=== PATIENT | female | born 1985 | race Two or more races ===

== ENCOUNTER → 2018-08-15 | Outpatient (CLI) | payer OTHER ==
[2018-08-15 12:27] LABS: Alcohol, Urine < 3.0 mg/dL (0-5); Amphetamine Screen, Urine NEGATIVE (NEGATIVE); Barbiturate Scree,Urine NEGATIVE (NEGATIVE); Benzodiazephine Screen, Urine NEGATIVE (NEGATIVE); Cannabinoid Screen, Urine NEGATIVE (NEGATIVE); Cocaine Screen, Urine NEGATIVE (NEGATIVE); Opiate Scree,Urine NEGATIVE (NEGATIVE); Phencyclidine Screen, Urine NEGATIVE (NEGATIVE)
[2018-08-15 12:30] LABS: Basophils # (auto) 0 uL; Basophils % (auto) 0.2 % (0.0-2.0); Eosinophils # (auto) 0.1 uL; Eosinophils % (auto) 1.2 % (0.0-7.0); Hematocrit 37.6 % (36.0-46.0); Hemoglobin 12.9 g/dL (12.2-16.2); Lymphocytes # (auto) 1.2 uL; Lymphocytes % (auto) 17.8 % (10.0-50.0); Mean Corpuscular Hemoglobin 31.3 pg (28.0-32.0); Mean Corpuscular Hgb Conc. 34.3 g/dL (32.0-36.0); Mean Corpuscular Volume 91.1 fL (80.0-100.0); Monocytes # (auto) 0.4 uL; Neutrophils % (auto) 74.8 % (37.0-80.0); Platelet Count (auto) 167 10^3/uL (140-450); Red Blood Cells 4.12 10^6/uL (4.0-5.20); Red Cell Distribution Width 13.7 % (11.8-14.3); White Blood Cell 6.6 10^3/uL (4.4-10.8)
[2018-08-16 08:10] LABS: RPR Non Reactive (Non Reactive)
== END | disposition home or self-care (01) ==
LOC: LAB 10:21
PROVIDERS: ATTEND Specialist
DX: Z34.81 Encounter for supervision of other normal pregnancy, first trimester (principal); Z36.0 Encounter for antenatal screening for chromosomal anomalies; Z20.2 Contact with and (suspected) exposure to infections with a predominantly sexual mode of transmission; Z3A.10 10 weeks gestation of pregnancy
CPT/HCPCS: 36415; 80307; 83036; 84702; 85025; 86592; 86703; 86762; 86850; 86900; 86901; 87086; 87340

== ENCOUNTER 2018-12-07 20:18 | Observation (INO) | payer OTHER ==
[~2018-12-07] VITALS: Ht 167.6 cm; Wt 86.6 kg
== END 2018-12-07 21:25 | disposition home or self-care (01) | DRG 833 ==
LOC: LDRP 20:18
PROVIDERS: ADMIT Obstetrics & Gynecology; ATTEND Obstetrics & Gynecology
DX: O26.892 Other specified pregnancy related conditions, second trimester (principal); R10.9 Unspecified abdominal pain; Z3A.27 27 weeks gestation of pregnancy
CPT/HCPCS: 59025; 81002; G0378

== ENCOUNTER → 2018-12-09 | Outpatient (CLI) | payer OTHER ==
[2018-12-09 09:36] LABS: Basophils # (auto) 0 uL; Basophils % (auto) 0.2 % (0.0-2.0); Eosinophils # (auto) 0.1 uL; Eosinophils % (auto) 1.2 % (0.0-7.0); Hematocrit 33.7 % (36.0-46.0); Lymphocytes # (auto) 1.4 uL; Lymphocytes % (auto) 15.9 % (10.0-50.0); Mean Corpuscular Hemoglobin 33.6 pg (28.0-32.0); Mean Corpuscular Hgb Conc. 35.5 g/dL (32.0-36.0); Mean Corpuscular Volume 94.7 fL (80.0-100.0); Monocytes # (auto) 0.7 uL; Monocytes % (auto) 7.6 % (0.0-12.0); Neutrophils # (auto) 6.8 uL; Neutrophils % (auto) 75.1 % (37.0-80.0); Nucleated Red Blood Cells % 0.1 %; Platelet Count (auto) 174 10^3/uL (140-450); Red Blood Cells 3.56 10^6/uL (4.0-5.20)
== END | disposition home or self-care (01) ==
LOC: LAB 09:19
PROVIDERS: ATTEND Specialist
DX: O99.810 Abnormal glucose complicating pregnancy (principal); Z3A.26 26 weeks gestation of pregnancy
CPT/HCPCS: 36415; 82951; 85025

== ENCOUNTER 2019-02-27 05:05 | Inpatient (IN) | payer OTHER ==
[~2019-02-27] VITALS: Ht 165.1 cm; Wt 92.5 kg
[2019-02-27] VITALS (14 sets, daily range): BP systolic 99–110; BP diastolic 58–79
[2019-02-27] MEDS ORDERED: LACTATED RINGER'S 1,000 ML IV SCH (05:12)
[2019-02-27 05:53] LABS: Basophils # (auto) 0 uL; Basophils % (auto) 0.3 % (0.0-2.0); Eosinophils # (auto) 0.1 uL; Eosinophils % (auto) 1.1 % (0.0-7.0); Hematocrit 35.2 % (36.0-46.0); Hemoglobin 12.4 g/dL (12.2-16.2); Lymphocytes # (auto) 1.6 uL; Mean Corpuscular Hgb Conc. 35.1 g/dL (32.0-36.0); Mean Corpuscular Volume 94.1 fL (80.0-100.0); Monocytes # (auto) 0.8 uL; Monocytes % (auto) 8.1 % (0.0-12.0); Neutrophils % (auto) 73.5 % (37.0-80.0); Platelet Count (auto) 177 10^3/uL (140-450); Red Blood Cells 3.74 10^6/uL (4.0-5.20); Red Cell Distribution Width 13.8 % (11.8-14.3); White Blood Cell 9.6 10^3/uL (4.4-10.8)
[2019-02-27 05:55] LABS: Urine Bacteria NONE SEEN /hpf (None Seen); Urine Blood Negative /uL (Negative); Urine Specific Gravity 1.008 (1.001-1.035); Urine WBC 27 /hpf (0 - 5)
[2019-02-27 06:06] LABS: INR 0.95 (0.9-1.15); Partial Thromboplastin Time 27.2 sec (23.64-32.05)
[2019-02-27 06:26] LABS: Albumin 2.5 g/dL (3.4-5.0); BUN/Creatinine Ratio 16.2; Potassium 3.5 mmol/L (3.5-5.1)
[2019-02-27 06:35] LABS: Bilirubin, Total 0.2 mg/dL (0.2-1.0); Total Protein 6.6 g/dL (6.4-8.2)
[2019-02-27] MEDS ORDERED: MORPHINE SULF(PF) 0.5MG/ML 10ML VIAL ONE (09:44)
[2019-02-27] MEDS ORDERED: fentaNYL CITRATE 100 MCG/2 ML VL ONE (09:44)
[2019-02-27] MEDS ORDERED: ONDANSETRON HCL 4 MG/2 ML VIAL IV PRN ×2 (11:15)
[2019-02-27] MEDS ORDERED: diphenhdrAMINE HCL 50 MG/1 ML VL IV PRN (11:15)
[2019-02-27] MEDS ORDERED: NALOXONE HCL 0.4 MG/ML VIAL IV PRN (11:15)
[2019-02-27] MEDS ORDERED: ceFAZolin 1GM/50ML 50 ML IV SCH ×3 (11:15→18:30)
[2019-02-27] MEDS ORDERED: HYDROmorphone HCL 2 MG/ML VL IV PRN (11:15)
--- NOTE | 2019-02-27 11:50 | NUR ---
PT REPORT RECEIVED FROM Marc DUMONT RN ON PATIENT, ASSUMING CARE WHEN PT RETURNS TO UNIT FROM PACU.
--- NOTE | 2019-02-27 11:53 | NUR ---
[facility] [employer]SACTION COORDINATOR CALLED AND GAVE REPORT ON PATIENT, STATED PT WILL BE BROUGHT OVER IN 5 MINUTES, AWAITING ARRIVAL.
--- NOTE | 2019-02-27 12:05 | NUR ---
Post Op for LDRP: Received patient from PACU [facility] RN via bed to room 8B. Patient A/A/Ox4, abdominal binder and bilateral SCD's are in place, IV fluids placed on pump and infusing LR per order, incisional site dressing sero-sang drainage circled and Btuts Catheter to gravity draining clear yellow urine. Incentive Spirometer at bedside and instruction on proper use with return demonstration done by patient. Patient fundus firm at umbilicus, scant lochia.
[2019-02-27] MEDS: LACTATED RINGER'S 1,000 ML IV SCH ×2 (13:10→23:00)
[2019-02-27] MEDS: KETOROLAC TROMETH 30 MG/ML 1ML VIAL IV SCH ×2 (13:11→18:01)
[2019-02-27] MEDS: ceFAZolin 1GM/50ML 50 ML IV SCH (18:01)
[2019-02-28] VITALS (7 sets, daily range): BP systolic 88–99; BP diastolic 52–60
--- NOTE | 2019-02-28 00:01 | NUR ---
Preparing pt for ambulation, fundus firm below the umb. lochia is light no clots noted. Sequential stockings removed, terence care given. Butts catheter remains in place 100 ml's of clear yellow urine emptied. Pt sitting on edge of bed no c/o dizziness at this time pt able to ambulate to chair with steady gait. Pt sitting quietly no distress noted, per pt request she remains in chair, instructed pt to call for assistance whe ready to ambulate back to bed. call tobar within reach
[2019-02-28] MEDS: KETOROLAC TROMETH 30 MG/ML 1ML VIAL IV SCH ×2 (00:14→06:03)
--- NOTE | 2019-02-28 01:30 | NUR ---
Pt assisted back to bed, IV fluids as ordered, call tobar within reach instructed to notify staff if she exp any problems or has any concerns.
[2019-02-28] MEDS: ceFAZolin 1GM/50ML 50 ML IV SCH ×2 (02:45→10:12)
[2019-02-28 04:06] LABS: RPR Non Reactive (Non Reactive)
--- NOTE | 2019-02-28 06:00 | NUR ---
Butts catheter removed and intact, 650 ml's of clear yellow urine emptied. Explained to pt the importance of urinating within a 6 hour time frame. Pt verbalizes understanding.
[2019-02-28 06:18] LABS: Basophils # (auto) 0 uL; Basophils % (auto) 0.4 % (0.0-2.0); Eosinophils # (auto) 0.1 uL; Hematocrit 28.5 % (36.0-46.0); Hemoglobin 10.1 g/dL (12.2-16.2); Mean Corpuscular Hemoglobin 33.3 pg (28.0-32.0); Mean Corpuscular Hgb Conc. 35.4 g/dL (32.0-36.0); Mean Corpuscular Volume 94.2 fL (80.0-100.0); Monocytes # (auto) 0.6 uL; Monocytes % (auto) 6.8 % (0.0-12.0); Neutrophils % (auto) 79.8 % (37.0-80.0); Nucleated Red Blood Cells % 0.1 %; Platelet Count (auto) 140 10^3/uL (140-450); Red Blood Cells 3.02 10^6/uL (4.0-5.20); White Blood Cell 8.7 10^3/uL (4.4-10.8)
[2019-02-28] MEDS ORDERED: HYDROcodone-ACET 5/325MG TAB PO PRN ×2 (12:15)
[2019-02-28] MEDS ORDERED: SIMETHICONE 80 MG CHEWABLE TABLET PO PRN (12:15)
[2019-02-28] MEDS: IBUPROFEN 800 MG TAB PO PRN ×2 (15:01→22:44)
[2019-02-28] MEDS ORDERED: PREN-96 PO (21:08)
[2019-02-28] MEDS ORDERED: INFLUENZA QUAD 2019-2020 0.5ml SYRG IM ONE (21:30)
[2019-02-28] MEDS: DOCUSATE SOD 100 MG CAP PO SCH (22:44)
--- NOTE | 2019-03-01 01:09 | NUR ---
IV removal Patient c/o pain at IV site and bleeding noted at IV insertion site. IV DC'd with sterile technique, catheter fully intact. Pressure dressing applied to site. Patient tolerated procedure well.
[2019-03-01 03:00] VITALS: BP 98/58
[2019-03-01 07:00] VITALS: BP 101/61
[2019-03-01] MEDS: IBUPROFEN 800 MG TAB PO PRN ×3 (07:30→21:43)
[2019-03-01 11:00] VITALS: BP 100/63
[2019-03-01] MEDS: DOCUSATE SOD 100 MG CAP PO SCH ×2 (11:17→21:42)
[2019-03-01] MEDS: DOCUSATE CALCIUM 240 MG CAP PO SCH (11:17)
[2019-03-01] MEDS ORDERED: ACETAMINOPHEN 325 MG TAB PO PRN (11:45)
[2019-03-01] MEDS: ACETAMINOPHEN 325 MG TAB PO PRN (12:18)
[2019-03-01 15:00] VITALS: BP 89/59
[2019-03-01] MEDS ORDERED: BISACODYL 10 MG RECT SUPP PR PRN (18:15)
[2019-03-01 19:00] VITALS: BP 103/66
[2019-03-01 22:56] VITALS: BP 98/63
[2019-03-02] MEDS: ACETAMINOPHEN 325 MG TAB PO PRN (01:11)
[2019-03-02 03:00] VITALS: BP 98/62
[2019-03-02 07:10] VITALS: BP 104/69
[2019-03-02] MEDS ORDERED: INFLUENZA QUAD 2019-2020 0.5ml SYRG IM ONE (10:15)
[2019-03-02] MEDS: DOCUSATE SOD 100 MG CAP PO SCH (10:26)
[2019-03-02] MEDS: DOCUSATE CALCIUM 240 MG CAP PO SCH (10:26)
[2019-03-02] MEDS: IBUPROFEN 800 MG TAB PO PRN (10:26)
--- NOTE | 2019-03-02 10:30 | NUR ---
Discharge: Discharge instructions given as ordered. Pt encouraged to follow up with [facility] as instructed. All questions and concerns addressed. Patient verbalized understanding. Medication reconciliation completed and copy given to patient. All required/requested vaccines given and copies of vaccinations given to patient. Patient encouraged to prepare to depart unit.
--- NOTE | 2019-03-02 10:45 | NUR ---
Discharge: Patient taken to vehicle with all personal belongings, accompanied by staff and family member. No distress noted at time of departure, no adverse changes in status since initial assessment.
== END 2019-03-02 10:44 | disposition home or self-care (01) | DRG 788 ==
LOC: LDRP 05:05
PROVIDERS: ADMIT Specialist; ATTEND Specialist
PROC: 10D00Z1 Extraction of Products of Conception, Low, Open Approach (ICD-10-PCS; principal; 2019-02-27 09:50)
DX: O34.211 Maternal care for low transverse scar from previous cesarean delivery (principal); Z37.0 Single live birth; Z3A.39 39 weeks gestation of pregnancy; Z23 Encounter for immunization
CPT/HCPCS: 36415; 59025; 80053; 81001; 84112; 85025; 85610; 85730; 86592; 86850; 86900; 86901; 96365; 96366; 96375; G0378; J0690; J1885

== ENCOUNTER → 2020-09-06 | Outpatient (CLI) | payer OTHER ==
[~2020-09-06] MED LIST: PREN-96 PO
[2020-09-06 07:57] LABS: Basophils # (auto) 0 10 ^3/uL (0-0.2); Basophils % (auto) 0.6 % (0.0-2.0); Eosinophils # (auto) 0.1 10 ^3/uL (0-0.8); Eosinophils % (auto) 2.6 % (0.0-7.0); Hematocrit 39.3 % (36.0-46.0); Hemoglobin 13.8 g/dL (12.2-16.2); Lymphocytes % (auto) 35.6 % (10.0-50.0); Mean Corpuscular Hgb Conc. 35.1 g/dL (32.0-36.0); Mean Corpuscular Volume 91.1 fL (80.0-100.0); Monocytes # (auto) 0.5 10 ^3/uL (0-1.3); Monocytes % (auto) 8.7 % (0.0-12.0); Neutrophils # (auto) 2.9 10 ^3/uL (1.6-8.6); Neutrophils % (auto) 52.5 % (37.0-80.0); Nucleated Red Blood Cells % 0.1 %; Platelet Count (auto) 191 10^3/uL (140-450); Red Blood Cells 4.31 10^6/uL (4.0-5.20); Red Cell Distribution Width 12.7 % (11.8-14.3); White Blood Cell 5.6 10^3/uL (4.4-10.8)
[2020-09-06 08:33] LABS: Potassium 3.6 mmol/L (3.5-5.1)
[2020-09-06 08:47] LABS: Albumin 3.4 g/dL (3.4-5.0); BUN/Creatinine Ratio 20.8; Bilirubin, Total 0.3 mg/dL (0.2-1.0); Calcium 8.6 mg/dL (8.5-10.1)
== END | disposition home or self-care (01) ==
LOC: LAB 07:21
PROVIDERS: ATTEND Internal Medicine
DX: E78.5 Hyperlipidemia, unspecified (principal); R73.03 Prediabetes; R00.2 Palpitations; R51.9 Headache, unspecified
CPT/HCPCS: 36415; 80053; 80061; 82306; 83036; 84443; 85025